=== PATIENT | female | born 1960 | race Caucasian/White ===

== ENCOUNTER 2019-06-20 06:48 | Day surgery (SDC) | payer OTHER ==
[~2019-06-20 06:48] MED LIST: Lactated Ringers 1,000 ML IV SCH; Sodium Chloride 0.9% 10 ML Syringe FLUSH PRN
[2019-06-20] MEDS ORDERED: Ondansetron 4 MG/2 ML SDV IVPUSH ONE (06:49)
[2019-06-20] MEDS ORDERED: Propofol 200 MG/20 ML SDV IV ONE (06:49)
--- NOTE | 2019-06-20 08:09 | PCM.PN ---
- General Info Date of Service: 06/20/19 - Review of Systems Systems Review Comment:: 58-year-old female with family history of colon cancer in her father here for high risk screening colonoscopy. Her last colon exam was 5 years ago. She denies any recent change in bowel pattern. She is medically stable to proceed today. Her recent history and physical is reviewed and no significant changes are noted. I have discussed the proposed colonoscopy with the patient. She agrees to proceed excepting risks. - Patient Data Vitals - Most Recent: Last Vital Signs Temp 98.4 F 06/20/19 07:12 Pulse 77 06/20/19 07:12 Resp 20 06/20/19 07:12 BP 154/79 H 06/20/19 07:12 Pulse Ox 98 06/20/19 07:12 Weight - Most Recent: 179 lb 3.7 oz Med Orders - Current: Current Medications Lactated Ringer's (Ringers, Lactated) 1,000 mls @ 125 mls/hr IV ASDIRECTED REHAN Last Admin: 06/20/19 07:17 Dose: 125 mls/hr Sodium Chloride (Saline Flush) 10 ml FLUSH ASDIRECTED PRN PRN Reason: Keep Vein Open Sepsis Event Note - Focused Exam Vital Signs: Vital Signs Temp Pulse Resp BP Pulse Ox 06/20/19 07:12 98.4 F 77 20 154/79 H 98 Date Exam was Performed: 06/20/19 Time Exam was Performed: 08:07 - Problem List Review Problem List Initiated/Reviewed/Updated: Yes - My Orders Last 24 Hours: My Active Orders 06/19/19 Dinner Nothing Per Oral Diet [DIET] 06/20/19 06:45 Patient Status [ADT] Routine Patient to Empty Bladder [RC] ASDIRECTED Verify Patient Consent Obtain [RC] ASDIRECTED Lactated Ringers [Ringers, Lactated] 1,000 ml IV ASDIRECTED Sodium Chloride 0.9% [Saline Flush] 10 ml FLUSH ASDIRECTED PRN Peripheral IV Insertion Adult [OM.PC] Routine - Assessment Assessment:: Family history of colon cancer - Plan Plan:: Colonoscopy
--- NOTE | 2019-06-20 09:11 | PCM.OPNOTE ---
- General Post-Op/Procedure Note Date of Surgery/Procedure: 06/20/19 Operative Procedure(s): Colonoscopy with Polypectomy Findings: Small Cecal Polyp Moderate Sigmoid Diverticulosis Pre Op Diagnosis: Family History of Colon Cancer Post-Op Diagnosis: Colon Polyp. Sigmoid Diverticulosis Anesthesia Technique: MAC Primary Surgeon: Emanuel Summers Pathology: Cecal Polyp EBL in mLs: 1 Complications: None Condition: Good
--- NOTE | 2019-06-20 16:00 | OR ---
DATE OF OPERATION: 06/20/2019 SURGEON: Emanuel Summers MD PREOPERATIVE DIAGNOSIS: Family history of colon cancer. POSTOPERATIVE DIAGNOSIS: Cecal polyp, sigmoid diverticulosis. OPERATION PERFORMED: Colonoscopy with polypectomy. INDICATIONS FOR SURGERY: This 58-year-old female is here for high-risk screening colonoscopy. Her father had a history of colon cancer. FINDINGS: A single small polyp was noted in the cecum. This was 4 mm in size. The patient also has a moderate degree of sigmoid diverticulosis. This does not appear to be acutely inflamed or otherwise complicated. DESCRIPTION OF PROCEDURE: The patient was taken to the operating room. She was given intravenous sedation and with her in the left lateral decubitus position, digital rectal exam was performed showing no rectal masses. The Olympus colonoscope was inserted into the rectum. Retroflexed examination of the rectal canal was performed. The scope was then carefully advanced under direct visualization through the entire length of the colon until the cecum was reached. Cecal acquisition was confirmed by noting the normal internal cecal anatomy including the appendiceal orifice and ileocecal valve. Upon examining the cecum, the above-described small polyp was identified. This was removed completely with the biopsy forceps. The specimen is retrieved and will be submitted for pathology. After examining the cecum, the scope was slowly withdrawn sequentially re-examining the colonic segments until the entire colon and rectum had been fully examined. The scope was removed, and the patient was taken from the operating room in satisfactory condition. ESTIMATED BLOOD LOSS: 1 mL. COMPLICATIONS: None. PROGNOSIS: Good. /[id number] ROMÁN/CATHRYN
== END 2019-06-20 09:35 | disposition home or self-care (01) ==
LOC: EDUNIT# 06:48 → FB.SDS 06:48
PROVIDERS: ATTEND Surgery
DX: Z12.11 Encounter for screening for malignant neoplasm of colon (principal); D12.0 Benign neoplasm of cecum; K57.30 Diverticulosis of large intestine without perforation or abscess without bleeding; I10 Essential (primary) hypertension; F41.8 Other specified anxiety disorders; Z88.2 Allergy status to sulfonamides; Z88.1 Allergy status to other antibiotic agents; Z80.0 Family history of malignant neoplasm of digestive organs; Z83.2 Family history of diseases of the blood and blood-forming organs and certain disorders involving the immune mechanism
CPT/HCPCS: 88305; J2405; J2704; J7120

== ENCOUNTER 2022-07-07 09:49 | Emergency (ER) | payer BC, OTHER ==
[2022-07-07] MEDS ORDERED: amLODIPine 10 MG Tab PO STA (10:14)
[2022-07-07] MEDS: cloNIDine 0.1 MG Tab PO ONE ×2 (10:24→10:31)
[2022-07-07] MEDS ORDERED: cloNIDine 0.1 MG Tab PO ONE (10:27)
[2022-07-07 10:47] LABS: ESTIMATED GFR 73 mL/min (>60)
[2022-07-07] MEDS ORDERED: hydrALAZINE 20 MG/ML SDV IM ONE (11:07)
== END 2022-07-07 12:00 | disposition home or self-care (01) ==
LOC: FB.ED 09:49
DX: I16.9 Hypertensive crisis, unspecified (principal); I10 Essential (primary) hypertension; Z88.0 Allergy status to penicillin; Z88.2 Allergy status to sulfonamides; Z88.1 Allergy status to other antibiotic agents
CPT/HCPCS: 36415; 80053; 84484; 85025; 93005; 93010; 96372; 99283; A9270-GY; J0360